=== PATIENT | male | born 1990 | race Asian ===

== ENCOUNTER 2020-08-28 08:52 | Emergency (ER) | payer OTHER ==
[~2020-08-28] VITALS: Ht 172.7 cm; Wt 74.8 kg
[2020-08-28 09:00] VITALS: BP 130/90
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
--- NOTE | 2020-08-28 10:02 | NUR ---
pt taken to ct
[2020-08-28] MEDS ORDERED: IBUPROFEN600 M1 ORAL (10:41)
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
--- NOTE | 2020-08-28 13:58 | Diagnostic Imaging Report ---
Indication: Left hand pain Technique: 3 views left hand Comparison: none Findings: No acute fracture. No dislocation. The joint spaces are preserved. Impression: Negative
== END 2020-08-28 10:45 | disposition home or self-care (01) ==
LOC: EMR 09:14
DX: S63.501A Unspecified sprain of right wrist, initial encounter (principal); S16.1XXA Strain of muscle, fascia and tendon at neck level, initial encounter; S60.222A Contusion of left hand, initial encounter; T14.8XXA Other injury of unspecified body region, initial encounter; V29.9XXA Motorcycle rider (driver) (passenger) injured in unspecified traffic accident, initial encounter; Y92.411 Interstate highway as the place of occurrence of the external cause
CPT/HCPCS: 29130; 72040; 73110; 73130; Z7502; 99284